=== PATIENT | male | born 1980 | race Two or more races ===

== ENCOUNTER 2024-12-12 14:29 | Inpatient (IN) ==
[2024-12-12 15:11] LABS: INR 1.1 (0.85-1.14)
[2024-12-12 16:08] LABS: ABS Basophils 0.1 10^3/uL (0.0-0.1); ABS Eosinophils 0.1 10^3/uL (0.0-0.5); ABS Lymphocytes 2.4 10^3/uL (1.0-4.8); ABS Monocytes 0.7 10^3/uL (0.0-1.1); ABS Neutrophils 6.1 10^3/uL (1.5-7.6); ABS Nucleated RBC 0.02 10^3/ul; Eosinophil % 1.4 %; Hematocrit 41.5 % (38-53); Hemoglobin 13.8 g/dL (13.2-16.3); Mean Corpuscular Hemoglobin 26.3 pg (27-33); Mean Corpuscular Hgb Conc 33.3 g/dL (31-36); Mean Corpuscular Volume 78.9 fL (80-97); Mean Platelet Volume 8.9 fL (7.5-11.2); Nucleated Red Blood Cells % 0.3 %/100WBC (0.0-0.8); Platelet Count 213 10^3/uL (150-450); Red Blood Count 5.26 10^6/uL (4.06-5.63); Red Cell Distribution Width 15.6 % (12-17); White Blood Count 9.3 10^3/uL (3.6-10.2)
[2024-12-12 16:23] LABS: High Sensitivity Troponin 1 Hr 31 pg/mL (<20)
[2024-12-12 16:37] LABS: Albumin/Globulin Ratio 1.2 (1-3); Calcium 8.8 mg/dL (8.6-10.3); Creatinine, Serum 0.69 mg/dL (0.67-1.17); Globulin 3.4 g/dL (2-4); Potassium 4.3 mmol/L (3.5-5.0); Total Bilirubin 0.6 mg/dL (0.2-1.0); Total Protein 7.4 g/dL (6.4-8.9)
[2024-12-12] MEDS: Iodixanol 320 (CONTRAST) 100 ML SDV IV ONE (17:36)
[2024-12-12 19:08] LABS: High Sensitivity Troponin 3 Hr 34 pg/mL (<20)
[2024-12-12] MEDS: Furosemide 40 mg/4 ml IV VIAL IV ONE (20:52)
[2024-12-12 21:02] LABS: C Reactive Protein 15.54 mg/L (<8.01)
[2024-12-12] MEDS ORDERED: Dextrose 50% Syringe 50 ml 25 GM/50 ML SYRINGE IV PUSH PRN (23:10)
[2024-12-13 12:13] LABS: ABS Eosinophils 0.1 10^3/uL (0.0-0.5); ABS Lymphocytes 1.9 10^3/uL (1.0-4.8); ABS Monocytes 0.6 10^3/uL (0.0-1.1); ABS Neutrophils 5.3 10^3/uL (1.5-7.6); ABS Nucleated RBC 0.01 10^3/ul; Eosinophil % 1.6 %; Hematocrit 40.4 % (38-53); Hemoglobin 13.8 g/dL (13.2-16.3); Lymphocyte % 24.3 %; Mean Corpuscular Hgb Conc 34.2 g/dL (31-36); Mean Corpuscular Volume 79.1 fL (80-97); Mean Platelet Volume 8.4 fL (7.5-11.2); Nucleated Red Blood Cells % 0.1 %/100WBC (0.0-0.8); Platelet Count 210 10^3/uL (150-450); Red Blood Count 5.11 10^6/uL (4.06-5.63); Red Cell Distribution Width 15.8 % (12-17)
[2024-12-13 12:55] LABS: Calcium 8.8 mg/dL (8.6-10.3); Creatinine, Serum 0.91 mg/dL (0.67-1.17); Magnesium 1.5 mg/dL (1.9-2.7); Potassium 4.4 mmol/L (3.5-5.0); eGFR CKD-EPI 106.6 (>60)
[2024-12-13 12:56] LABS: HDL Cholesterol 23.9 mg/dL
[2024-12-13] MEDS: Magnesium Sulfate 2 gm BAG 2 GM/50 ML BAG IVPB ONE (15:14)
[2024-12-14 06:32] LABS: Calcium 9.2 mg/dL (8.6-10.3); Creatinine, Serum 0.83 mg/dL (0.67-1.17); Magnesium 1.6 mg/dL (1.9-2.7); Potassium 4.6 mmol/L (3.5-5.0); eGFR CKD-EPI 110.7 (>60)
[2024-12-14] MEDS: Magnesium Sulfate 2 gm BAG 2 GM/50 ML BAG IVPB ONE (15:06)
[2024-12-14] MEDS: Insulin GLARGINE 100 un/ml 10 ml VIAL SUBCUT SCH (20:46)
[2024-12-15 07:21] LABS: Calcium 9.1 mg/dL (8.6-10.3); Creatinine, Serum 0.74 mg/dL (0.67-1.17); Magnesium 1.7 mg/dL (1.9-2.7); Potassium 4.5 mmol/L (3.5-5.0); eGFR CKD-EPI 114.6 (>60)
[2024-12-15] MEDS: Magnesium Sulfate 2 gm BAG 2 GM/50 ML BAG IVPB ONE (08:53)
[2024-12-15] MEDS ORDERED: Regadenoson 0.4 MG/5 ML SYRINGE ONE (10:44)
[2024-12-15] MEDS ORDERED: Aminophylline 25 MG/ML VIAL ONE (10:44)
[2024-12-15] MEDS ORDERED: Sulfur Hexaflouride MICROSPHR 25 MG VIAL ONE (11:40)
[2024-12-15] MEDS: Sulfur Hexaflouride MICROSPHR 25 MG VIAL IV PRN (12:09)
[2024-12-16 10:04] LABS: Activated Partial Thrombo Time 30.7 seconds (26.0-38.0); INR 1.1 (0.85-1.14)
[2024-12-16 10:30] LABS: Albumin 4.1 g/dL (3.5-5.7); Albumin/Globulin Ratio 1.1 (1-3); Calcium 8.9 mg/dL (8.6-10.3); Creatinine, Serum 0.69 mg/dL (0.67-1.17); Globulin 3.7 g/dL (2-4); Potassium 4.6 mmol/L (3.5-5.0); Total Bilirubin 0.6 mg/dL (0.2-1.0); Total Protein 7.8 g/dL (6.4-8.9)
[2024-12-16 11:04] LABS: Magnesium 1.6 mg/dL (1.9-2.7)
[2024-12-16 11:09] LABS: TSH Ultra Thyroid Stim Horm 3.51 mcIU/mL (0.34-5.60)
[2024-12-16 11:10] LABS: Free T3 3.82 pg/mL (2.5-3.9)
[2024-12-16 11:11] LABS: Free T4 0.76 ng/dL (0.61-1.12)
[2024-12-16] MEDS: Furosemide 40 mg/4 ml IV VIAL IV SLOW PU ONE (11:24)
[2024-12-16] MEDS ORDERED: Heparin 1,000 UNIT/ML 10 ml (10,000 UNITS) CATHLAB/DIALYSIS ONE (14:17)
[2024-12-16] MEDS ORDERED: Lidocaine 1% VIAL 10 MG/ML 30 ML VIAL ONE (14:18)
[2024-12-16] MEDS ORDERED: Heparin 2 UNITS/ML 1000 mls 2,000 ML IV ONE (14:18)
[2024-12-16] MEDS ORDERED: VERAPAMIL 2.5 MG/ML 2 ML VIAL ** 5 mg/2 ml ONE (14:18)
[2024-12-16] MEDS ORDERED: nitroGLYCERIN DRIP 50,000 MCG/250 ML BTL ONE (14:18)
[2024-12-16] MEDS ORDERED: Iohexol 350 (CONTRAST) 200 ML MDV IV ONE (14:38)
[2024-12-16] MEDS ORDERED: fentaNYL 100 mcg/2 ml 50 MCG/ML VIAL ONE (14:46)
[2024-12-16] MEDS ORDERED: Midazolam 5 mg/5 ml VIAL 1 mg/ml 5 ml VIAL (5 mg) ONE (14:46)
[2024-12-16] MEDS: NS 0.9% 1000 ml BAG 1,000 ML IV SCH (15:00)
[2024-12-16] MEDS: Midazolam 10 mg/10 ml VIAL 1 mg/ml 10 ml VIAL (10 mg) IV SLOW PU ONE (16:16)
[2024-12-16] MEDS: fentaNYL 100 mcg/2 ml 50 MCG/ML VIAL IV SLOW PU ONE (16:16)
[2024-12-16 16:31] LABS: POC SO2 65 %
[2024-12-16 16:31] LABS: POC SO2 89 %
[2024-12-16 16:31] LABS: POC SO2 61 %
[2024-12-16] MEDS ORDERED: Dextrose 50% Syringe 50 ml 25 GM/50 ML SYRINGE IV PUSH PRN (18:18)
[2024-12-16] MEDS: Insulin GLARGINE 100 un/ml 10 ml VIAL SUBCUT SCH (22:09)
[2024-12-17 07:38] LABS: Calcium 9.1 mg/dL (8.6-10.3); Creatinine, Serum 0.94 mg/dL (0.67-1.17); Potassium 4.7 mmol/L (3.5-5.0); eGFR CKD-EPI 102.5 (>60)
[2024-12-17 10:58] LABS: Magnesium 1.8 mg/dL (1.9-2.7)
[2024-12-17] MEDS: Magnesium Sulfate 2 gm BAG 2 GM/50 ML BAG IVPB ONE (19:39)
[2024-12-18] MEDS: guaiFENesin 100 mg/5 ml LIQ unit dose cup PO PRN (06:24)
[2024-12-18 10:22] VITALS: BP 126/89
== END 2024-12-18 13:30 | disposition home health service (06) | DRG 192 ==
LOC: EDHOLD 14:29 → ED 14:29 → SUATTDRO 20:34 → OBSVTOIN 20:34 → MEDTELE 12-13 11:08
PROVIDERS: ADMIT Internal Medicine; ATTEND Student in an Organized Health Care Education/Training Program